=== PATIENT | female | born 1960 | race Caucasian/White ===

== ENCOUNTER 2017-01-02 06:58 | Day surgery (SDC) | payer BC ==
[~2017-01-02 06:58] MED LIST: Lactated Ringers 1,000 ML IV SCH; Lidocaine 1% with EPINEPHrine 1:100,000 20 ML MDV ONE; Lidocaine 1%/Sod Bicarbonate in NS 8.4% 1 ML Syringe PRN; Sodium Chloride 0.9% 10 ML Syringe FLUSH PRN; Sodium Chloride 0.9% 50 ML SDV ONE
--- NOTE | 2017-01-02 07:26 | PCM.PREANE ---
Preanesthetic Assessment - Procedure Proposed Procedure: Diag EGD and diag Colonoscopy - Anesthesia/Transfusion/Family Hx Anesthesia History: Prior Anesthesia Without Reaction Family History of Anesthesia Reaction: No Transfusion History: No Prior Transfusion(s) - Review of Systems General: No Symptoms Pulmonary: No Symptoms Cardiovascular: No Symptoms Gastrointestinal: No Symptoms Neurological: No Symptoms Other: Reports: None - Physical Assessment NPO Status Date: 01/01/17 NPO Status Time: 20:00 Pulse: 58 O2 Sat by Pulse Oximetry: 95 Respiratory Rate: 20 Blood Pressure: 154/84 Temperature: 97.4 F Height: 5 ft 6 in Weight: 118 kg ASA Class: 2 Mental Status: Alert & Oriented x3 Airway Class: Mallampati = 1 Dentition: Reports: Normal Dentition Thyro-Mental Finger Breadths: 3 Mouth Opening Finger Breadths: 3 ROM/Head Extension: Full Lungs: Clear to Auscultation, Normal Respiratory Effort Cardiovascular: Regular Rate, Regular Rhythm - Allergies Allergies/Adverse Reactions: Allergies Allergy/AdvReac Type Severity Reaction Status Date / Time oxycodone Allergy Hallucinati Verified 01/01/17 12:32 ons - Blood Blood Available: No - Acknowledgements Anesthesia Type Planned: MAC Pt an Appropriate Candidate for the Planned Anesthesia: Yes Alternatives and Risks of Anesthesia Discussed w Pt/Guardian: Yes Pt/Guardian Understands and Agrees with Anesthesia Plan: Yes PreAnesthesia Questionnaire HEENT History: Reports: Impaired Vision, Other (See Below) Other HEENT History: wears glasses Cardiovascular History: Reports: High Cholesterol, Hypertension Respiratory History: Reports: None Gastrointestinal History: Reports: Other (See Below) Other Gastrointestinal History: positive fecal immunochemical test Genitourinary History: Reports: None CRA OFFICER History: Reports: None Musculoskeletal History: Reports: Other (See Below) Other Musculoskeletal History: muscle spasm Neurological History: Reports: None Psychiatric History: Reports: Anxiety (off meds), Depression (off meds), Other ( See Below) Other Psychiatric History: insomnia Endocrine/Metabolic History: Reports: None Hematologic History: Reports: None Immunologic History: Reports: None Oncologic (Cancer) History: Reports: Breast Dermatologic History: Reports: None - Past Surgical History Head Surgeries/Procedures: Reports: None HEENT Surgical History: Reports: Tonsillectomy Cardiovascular Surgical History: Reports: None Respiratory Surgical History: Reports: None GI Surgical History: Reports: None Female Surgical History: Reports: Oophorectomy Male Surgical History: Reports: None Endocrine Surgical History: Reports: None Neurological Surgical History: Reports: None Musculoskeletal Surgical History: Reports: None Oncologic Surgical History: Reports: Lumpectomy, Other (See Below) (radha cath for chemo) Dermatological Surgical History: Reports: None - SUBSTANCE USE Smoking Status *Q: Former Smoker (quit 1997) Tobacco Use Within Last Twelve Months: No Second Hand Smoke Exposure: No Days Per Week of Alcohol Use: 0 (seldom) Recreational Drug Use History: No - HOME MEDS Home Medications: Home Meds Cholecalciferol (Vitamin D3) [Vitamin D3] 1,000 unit PO DAILY 01/01/17 [History] Chrom April/Brindal Saldivar [Garcinia Cambogia Tablet] 2 tab PO DAILY 01/01/17 [ History] D-Methorphan/Acetamin/Doxylamn [Coricidin Hbp Cold-Multi Sympt] 1 dose PO ASDIRECTED PRN 01/01/17 [History] Fish Oil/[facility]-3 Fatty Acids [Fish Oil 1,000 MG] 1 gm PO DAILY 01/01/17 [History ] L. Rhamnosus GG/Inulin [Culturelle Capsule] 1 cap PO DAILY 01/01/17 [History] Lisinopril [Lisinopril] 20 mg PO DAILY 01/01/17 [History] Multivitamin [Daily Multiple Vitamin] 1 tab PO DAILY 01/01/17 [History] - CURRENT (IN HOUSE) MEDS Current Meds: Current Medications Lactated Ringer's (Ringers, Lactated) 1,000 mls @ 125 mls/hr IV ASDIRECTED MELANIE Stop: 01/02/17 23:00 Lidocaine/Sodium Bicarbonate (Buffered Lidocaine 1% In Ns 8.4%) 0.25 ml .XX ONETIME PRN PRN Reason: Prior to IV Start Stop: 01/02/17 18:00 Sodium Chloride (Saline Flush) 10 ml FLUSH ASDIRECTED PRN PRN Reason: Keep Vein Open Stop: 01/02/17 18:00 Discontinued Medications Fentanyl (Sublimaze) Confirm Administered Dose 100 mcg .ROUTE .STK-MED ONE Stop: 01/02/17 07:37 Lidocaine HCl (Xylocaine-Mpf 1%) Confirm Administered Dose 4 mls @ as directed .ROUTE .STK-MED ONE Stop: 01/02/17 07:36 Lidocaine/Epinephrine (Xylocaine 1% With Epinephrine 1:100,000) Confirm Administered Dose 20 ml .ROUTE .STK-MED ONE Stop: 01/02/17 06:58 Midazolam HCl (Versed 1 Mg/Ml) Confirm Administered Dose 2 mg .ROUTE .STK-MED ONE Stop: 01/02/17 07:37 Propofol (Diprivan 20 Ml) Confirm Administered Dose 200 mg .ROUTE .STK-MED ONE Stop: 01/02/17 07:37 Propofol (Diprivan 20 Ml) Confirm Administered Dose 200 mg .ROUTE .STK-MED ONE Stop: 01/02/17 07:37 Sodium Chloride (Normal Saline) Confirm Administered Dose 50 ml .ROUTE .STK-MED ONE Stop: 01/02/17 06:58
[2017-01-02] MEDS ORDERED: Lidocaine 1% 4 ML ONE (07:35)
[2017-01-02] MEDS ORDERED: Midazolam 1 MG/ML 2 ML SDV ONE (07:36)
[2017-01-02] MEDS ORDERED: fentaNYL 100 MCG/2 ML SDV ONE (07:36)
[2017-01-02] MEDS ORDERED: Propofol 200 MG/20 ML SDV ONE ×2 (07:36)
[2017-01-02] MEDS ORDERED: Ondansetron 4 MG/2 ML SDV ONE (08:17)
--- NOTE | 2017-01-02 08:30 | PCM48HPAN ---
Post Anesthesia Note - EVALUATION WITHIN 48HRS OF ANESTHETIC Vital Signs in Normal Range: Yes Patient Participated in Evaluation: Yes Respiratory Function Stable: Yes Airway Patent: Yes Cardiovascular Function Stable: Yes Hydration Status Stable: Yes Pain Control Satisfactory: Yes Nausea and Vomiting Control Satisfactory: Yes Mental Status Recovered: Yes
--- NOTE | 2017-01-02 08:54 | PCM.OPNOTE ---
- General Post-Op/Procedure Note Date of Surgery/Procedure: 01/02/17 Operative Procedure(s): Diagnostic EGD with cold forceps biopsy, Diagnostic Colonoscopy Findings: Esophagitis, Gastritis, Sigmoid Diverticulosis, Internal Hemorrhoids Pre Op Diagnosis: Positive Fecal Immunochemical Testing Post-Op Diagnosis: 1. Esophagitis 2. Gastritis 3. Sigmoid Diverticulosis 4. Internal Hemorrhoids Anesthesia Technique: MAC Primary Surgeon: See Clarke Anesthesia Provider: Gail Miranda EBL in mLs: 5 Complications: None Condition: Good Free Text/Narrative:: After the patient gave verbal and written consent she was placed on blood pressure and pulse ox monitoring. She was given iv sedation which she tolerated well. The olympus gastroscope was inserted in the oropharynx and passed down into the second portion of the duodenum. The mucosal surfaces were extensively imaged. Gastritis and distal esophagitis were noted and cold forceps biopsies were taken of the antrum, stomach body and GE junction. There was good hemostasis. The patient tolerated well and the scope was removed. There were no complications. The patient was then prepped for colonoscopy, the colonoscope was inserted per rectum and advanced to the cecum without difficulty. The ileocecal valve and appendiceal orfice were imaged documenting cecal intubation. The scope was slowly withdrawn. The prep was excellent, the views were excellent. Mild diverticulosis was noted in the sigmoid colon. The scope was retroflexed in the rectum and internal hemorrhoids were noted. The scope was removed. There were no complications.
[2017-01-02 11:17] VITALS: BP 146/98
== END 2017-01-02 09:25 | disposition home or self-care (01) ==
LOC: JD.SDS 06:58
PROVIDERS: ATTEND Family Medicine
DX: K20.9 Esophagitis, unspecified (principal); K57.30 Diverticulosis of large intestine without perforation or abscess without bleeding; K64.8 Other hemorrhoids; B33.20 Viral carditis, unspecified; I10 Essential (primary) hypertension; F32.9 Major depressive disorder, single episode, unspecified; E78.5 Hyperlipidemia, unspecified; Z79.899 Other long term (current) drug therapy; Z88.8 Allergy status to other drugs, medicaments and biological substances; Z98.890 Other specified postprocedural states; Z90.722 Acquired absence of ovaries, bilateral; Z87.891 Personal history of nicotine dependence
CPT/HCPCS: 43239; 45378; J2250; J2405; J3010; J7120; 00810; J2704

== ENCOUNTER 2023-08-03 05:19 | Emergency (ER) | payer BC ==
[2023-08-03 05:52] LABS: BASOPHILS PERCENT AUTO 0.6 % (0.0-1.0); EOSINOPHILS ABSOLUTE AUTO 0.1 K/mm3 (0.0-0.4); EOSINOPHILS PERCENT AUTO 1.4 % (0.0-6.0); HEMATOCRIT 43.4 % (37.0-47.0); HEMOGLOBIN 14.3 gm/dl (12.0-16.0); IMMATURE GRAN ABSOLUTE AUTO 0.02 K/mm3 (0.00-0.05); IMMATURE GRAN PERCENT AUTO 0.3 % (0.0-0.4); LYMPHOCYTES ABSOLUTE AUTO 2.1 K/mm3 (1.0-4.8); LYMPHOCYTES PERCENT AUTO 30.1 % (24.0-44.0); MEAN CORPUSCULAR HEMOGLOBIN 28.4 pg (28.0-32.0); MEAN CORPUSCULAR HGB CONC 32.9 g/dl (32.0-36.0); MEAN CORPUSCULAR VOLUME 86.1 fl (83.0-99.0); MEAN PLATELET VOLUME 9.7 fl (9.4-12.3); MONOCYTES ABSOLUTE AUTO 0.5 K/mm3 (0.0-0.8); MONOCYTES PERCENT AUTO 7.5 % (0.0-8.0); NEUTROPHILS ABSOLUTE AUTO 4.1 K/mm3 (1.8-7.7); NEUTROPHILS PERCENT AUTO 60.1 % (41.0-71.0); PLATELET COUNT,PLT 208 K/mm3 (150-400); RED BLOOD CELL COUNT 5.04 M/mm3 (4.10-5.30)
[2023-08-03] MEDS: Sodium Chloride 0.9% 1,000 ML IV ONE (05:56)
[2023-08-03] MEDS: Famotidine 20 MG/2 ML SDV IVPUSH ONE (05:57)
[2023-08-03 06:20] LABS: A/G RATIO 1.1 (1-2); ALBUMIN 3.6 g/dl (3.4-5.0); ANION GAP 13.7 (5-15); BILIRUBIN TOTAL 0.6 mg/dL (0.2-1.0); EST CRCL DRUG DOSING (CG) 49.08 mL/min; POTASSIUM,K 3.7 mEq/L (3.5-5.1)
[2023-08-03] MEDS: Iopamidol 755 Mg/ML 100 ML Bottle IVPUSH ONE (06:29)
[2023-08-03] MEDS ORDERED: Sodium Chloride 0.9% 100 ML IV SCH (06:30)
[2023-08-03] MEDS: Acetaminophen 325 MG Tab PO ONE (06:35)
[2023-08-03] MEDS: Sodium Chloride 0.9% 10 ML Syringe FLUSH PRN (06:53)
[2023-08-03 09:18] VITALS: BP 172/80; PULSE 70
== END 2023-08-03 07:49 | disposition home or self-care (01) ==
LOC: JD.ED 05:19
DX: R07.89 Other chest pain (principal); I10 Essential (primary) hypertension; E78.00 Pure hypercholesterolemia, unspecified; Z79.899 Other long term (current) drug therapy; Z88.5 Allergy status to narcotic agent
CPT/HCPCS: 36415; 71045; 71275; 80053; 83690; 84484; 85025; 93005; 96361; 96374; 99285; A9270; J3490; J7030; Q9967